=== PATIENT | female | born 1985 | race Hispanic/Latino ===

== ENCOUNTER 2018-08-05 22:09 | Emergency (ER) | payer MEDICAID, OTHER ==
[~2018-08-05 22:09] MED LIST: IBUP-2070 PO
== END 2018-08-05 23:05 | disposition left against medical advice (07) ==
LOC: EDH 22:09
DX: R00.2 Palpitations (principal); Z53.21 Procedure and treatment not carried out due to patient leaving prior to being seen by health care provider; Z72.0 Tobacco use
CPT/HCPCS: 93005